=== PATIENT | female | born 1975 | race Caucasian/White ===

== ENCOUNTER 2016-11-30 20:25 | Emergency (ER) | payer SELFPAY ==
[~2016-11-30] VITALS: Ht 152.4 cm; Wt 56.7 kg
[2016-11-30 20:52] LABS: Basophils # (auto) 0 uL; Basophils % (auto) 0.2 % (0.0-2.0); Eosinophils # (auto) 0 uL; Eosinophils % (auto) 0.1 % (0.0-7.0); Hematocrit 43.7 % (36.0-46.0); Hemoglobin 14.5 g/dL (12.2-16.2); Lymphocytes # (auto) 1.3 uL; Mean Corpuscular Hemoglobin 31.3 pg (28.0-32.0); Mean Corpuscular Hgb Conc. 33.2 g/dL (32.0-36.0); Mean Corpuscular Volume 94.2 fL (80.0-100.0); Mean Platelet Volume 6.4 fL (7.4-10.4); Monocytes # (auto) 0.8 uL; Neutrophils # (auto) 7.9 uL; Neutrophils % (auto) 78.7 % (37.0-80.0); Platelet Count (auto) 313 10^3/uL (140-450); Red Cell Distribution Width 12.5 % (11.6-16.0); White Blood Cell 10.1 10^3/uL (4.4-10.8)
[2016-11-30 21:02] LABS: Urine Bilirubin Negative (Negative); Urine Color Yellow (Yellow); Urine Glucose Normal (Normal); Urine Mucus FEW (None Seen); Urine RBC 1 /hpf (0 - 4); Urine Squamous Epithelial Cell MANY /hpf (<5); Urine Urobilinogen Normal (Negative); Urine WBC Clumps PRESENT /hpf (None Seen); Urine pH 5.5 (5.0-8.0)
[2016-11-30 21:03] LABS: Urine Blood 1+ /uL (Negative); Urine Ketone 2+ (Negative); Urine Nitrite POSITIVE (Negative)
[2016-11-30 21:37] VITALS: BP 120/79
== END 2016-11-30 22:15 | disposition home or self-care (01) ==
LOC: ER 20:31
DX: J20.9 Acute bronchitis, unspecified (principal); N39.0 Urinary tract infection, site not specified
CPT/HCPCS: 36415; 71020; 81001; 85025

== ENCOUNTER 2017-03-29 11:56 | Emergency (ER) | payer MEDICAID ==
[~2017-03-29] VITALS: Ht 149.9 cm; Wt 58.5 kg
[2017-03-29] MEDS ORDERED: ETOMIDATE (2MG/ML) 20ML VIAL IV ONE (14:00)
[2017-03-29] MEDS ORDERED: ONDANSETRON HCL 4 MG/2 ML VIAL ONE (14:33)
[2017-03-29] MEDS ORDERED: MORPHINE SULFATE 4 MG/ML SYRG IV ONE (14:45)
[2017-03-29 16:30] VITALS: BP 142/78
== END 2017-03-29 17:23 | disposition home or self-care (01) ==
LOC: ER 11:56
DX: S43.004A Unspecified dislocation of right shoulder joint, initial encounter (principal); F17.210 Nicotine dependence, cigarettes, uncomplicated; X58.XXXA Exposure to other specified factors, initial encounter; Y93.89 Activity, other specified; Y99.8 Other external cause status; Y92.89 Other specified places as the place of occurrence of the external cause
CPT/HCPCS: 23650; 73020; 73030; 94761; 96374; 99285; J2270; J2405